=== PATIENT | female | born 1980 | race Two or more races ===

== ENCOUNTER → 2024-10-29 | Outpatient (CLI) | payer BC, OTHER, SELFPAY ==
[2024-10-29 16:52] LABS: HCG Qualitative,Urine Negative
== END | disposition home or self-care (01) ==
LOC: SLDO 11-09 09:32
PROVIDERS: Referring Provider Internal Medicine; Visit Provider Internal Medicine
DX: Z32.00 Encounter for pregnancy test, result unknown (principal)
CPT/HCPCS: 81025

== ENCOUNTER → 2024-10-30 | Outpatient (CLI) | payer BC, OTHER, SELFPAY ==
--- NOTE | 2024-10-30 16:08 | XR_ITS ---
Examination: CT chest, without intravenous contrast. Sagittal and coronal 2-D reconstructions. Exam date and time: October 30, 2024 1651 hours INDICATIONS: 6 mm pulmonary nodule right upper lobe on CT chest February 07, 2024 CTDI:vol (mGy) 9.75 DLP: (mGycm) 338 Technique: Multiple 3.0 mm axial sections of the chest to been obtained. Bone and lung density settings are obtained. Sagittal and coronal 2-D reconstructions have been obtained. Low dose protocols were performed. One or more of the following dose reduction techniques were used; automated exposure control, adjustment of the mA and/or KV according to patient size, use of iterative reconstruction technique. Findings: No thoracic aortic aneurysm dilatation Pulmonary artery segments are mildly enlarged No paratracheal tracheobronchial or bronchopulmonary adenopathy Pulmonary nodule right upper lobe measures 7 mm compared to 6 mm on February 07, 2024 No visualized liver or splenic lesion Contracted gallbladder IMPRESSION: Recommend continued 6 month follow-up CT chest without contrast to document stability of pulmonary nodule right upper lobe
== END | disposition home or self-care (01) ==
LOC: CDIM 16:05
PROVIDERS: Referring Provider Internal Medicine; Visit Provider Internal Medicine
DX: R91.1 Solitary pulmonary nodule (principal)
CPT/HCPCS: 71250